=== PATIENT | female | born 1990 | race Caucasian/White ===

== ENCOUNTER 2021-03-01 17:40 | Emergency (ER) | payer OTHER ==
[~2021-03-01] VITALS: Ht 165.1 cm; Wt 61.0 kg
[2021-03-01 18:43] VITALS: BP 126/73
== END 2021-03-01 18:44 | disposition home or self-care (01) ==
LOC: ER 17:40
DX: R25.2 Cramp and spasm (principal); F41.9 Anxiety disorder, unspecified; Z98.890 Other specified postprocedural states
CPT/HCPCS: 99283